=== PATIENT | female | born 1995 ===

== ENCOUNTER 2019-12-12 14:14 | Emergency (ER) | payer OTHER ==
[~2019-12-12] VITALS: Ht 167.6 cm; Wt 51.7 kg
== END 2019-12-12 16:27 | disposition home or self-care (01) ==
LOC: ER 14:14
DX: L03.116 Cellulitis of left lower limb (principal); S70.362A Insect bite (nonvenomous), left thigh, initial encounter; W57.XXXA Bitten or stung by nonvenomous insect and other nonvenomous arthropods, initial encounter; Y93.89 Activity, other specified; Y92.89 Other specified places as the place of occurrence of the external cause; Y99.8 Other external cause status

== ENCOUNTER → 2020-11-03 | Outpatient (CLI) | payer OTHER | END | disposition home or self-care (01) | LOC: MRI 11:31 | PROVIDERS: ATTEND Orthopaedic Surgery | DX: M25.561 Pain in right knee (principal); M25.562 Pain in left knee | CPT/HCPCS: 73721 ==

== ENCOUNTER 2021-09-18 11:19 | Outpatient (CLI) | payer OTHER | END 2021-09-18 11:30 | disposition home or self-care (01) | LOC: SONOGRAMA 11:19 | PROVIDERS: ATTEND Obstetrics & Gynecology Gynecology | DX: N64.4 Mastodynia (principal); N60.11 Diffuse cystic mastopathy of right breast; N60.12 Diffuse cystic mastopathy of left breast ==

== ENCOUNTER 2024-02-20 08:47 | Outpatient (CLI) | payer OTHER | END 2024-02-20 08:59 | disposition home or self-care (01) | LOC: RAD 08:47 | PROVIDERS: ATTEND General Practice | DX: R10.2 Pelvic and perineal pain (principal); N91.2 Amenorrhea, unspecified; R10.12 Left upper quadrant pain; R06.00 Dyspnea, unspecified ==